=== PATIENT | female | born 1945 | race Two or more races ===

== ENCOUNTER 2025-03-29 13:59 | Emergency (ER) | payer OTHER ==
[~2025-03-29] VITALS: Ht 165.1 cm; Wt 70.3 kg
[2025-03-29] MEDS ORDERED: 0.9 % SODIUM CHLORIDE 500 ML IV ONE (15:45)
[2025-03-29] MEDS ORDERED: ACETAMINOPHEN 500 MG GEL..CAP PO ONE (15:45)
[2025-03-29] MEDS ORDERED: GUAIFENESIN/DEXTROMETHORPHAN 100MG/10ML BLIST.PACK PO ONE (15:45)
[2025-03-29 17:17] LABS: BASO % 0.2 % (0.1-1.2); EOS # 0.05 (0.04-0.54); EOS % 0.6 % (0.7-7.0); LYMPH # 1.50 (1.18-3.74); LYMPH % 17.9 % (19.3-53.1); MEAN PLATELET VOLUME 10.40 fl (9.4-12.4); MONO # 1.43 (0.24-0.82); NEUT # 5.36 (1.56-6.13); NEUT % 64.0 % (34.0-71.1); RED CELL DISTRIBUTION WIDTH 13.4 % (11.6-14.4)
[2025-03-29 17:19] LABS: MONO % 17.1 % (4.7-12.5)
[2025-03-29 17:56] LABS: ALT/SGPT 25.0 U/L (12-78); AST/SGOT 17.0 U/L (15-37); BILIRUBIN TOTAL 0.53 mg/dL (0.3-1.2); BUN CREA RATIO 16.0 (7.0-25.0); CREATININE SERUM 0.92 mg/dL (0.55-1.02); GFR 58.89; GLOBULINA 3.7 G/DL (2.4-3.5); GLUCOSE FASTING 83.0 mg/dL (65-100); OSMOLALITY SERUM 285.0 MOSM/KG (275-295)
[2025-03-29 18:15] LABS: COVID-19 AG NEGATIVE (NEGATIVE)
[2025-03-29] MEDS ORDERED: OSEL75CA PO (19:05)
[2025-03-29] MEDS ORDERED: TUSSIN DM LIQU118 ML PO (19:05)
[2025-03-29] MEDS ORDERED: OSELTAMIVIR PHOSPHATE 75 MG CAPSULE PO ONE (19:15)
== END 2025-03-29 19:30 | disposition home or self-care (01) ==
LOC: ER 14:00 → EMR PED 14:13 → ER 19:30
PROVIDERS: General Practice
DX: J10.1 Influenza due to other identified influenza virus with other respiratory manifestations (principal); J02.8 Acute pharyngitis due to other specified organisms; Z20.822 Contact with and (suspected) exposure to COVID-19; I10 Essential (primary) hypertension
CPT/HCPCS: 36415; 96365; 96366; 99282; J7042